=== PATIENT | male | born 1950 ===

== ENCOUNTER → 2022-07-08 08:26 | Outpatient (BNVA) | payer MEDICARE, SELFPAY | PROVIDERS: PCP Pediatrics; Visit Provider Nurse Practitioner Family | DX: M96.1 Postlaminectomy syndrome, not elsewhere classified (principal); M51.36 Other intervertebral disc degeneration, lumbar region; M70.61 Trochanteric bursitis, right hip; M70.62 Trochanteric bursitis, left hip; M25.552 Pain in left hip; M47.816 Spondylosis without myelopathy or radiculopathy, lumbar region | CPT/HCPCS: 99202 ==

== ENCOUNTER 2022-09-16 06:05 | Outpatient (REF) | payer MEDICARE, SELFPAY ==
--- NOTE | ~2022-09-16 | FL_ITS ---
EXAMINATION: XR FLUOROSCOPY WITH IMAGES CLINICAL INFORMATION: Pain left hip COMPARISON: None. TECHNIQUE: Fluoroscopy Supervised By: Arely Eduardo. Fluoroscopy Time: 0.2 minutes. Cumulative Dose: 20.8 mGy. DAP: 5.28 Gycm2. Images: 3. FINDINGS: There are 2 digital images revealing needle positioned lateral to left femoral head with contrast along the medial joint. The joint space is maintained normal. No bony abnormality seen. FL/FL guidance in treatment room IMPRESSION: Fluoroscopy was provided to referring physician for pain management.
== END 2022-09-16 06:06 | disposition home or self-care (01) ==
LOC: CF 06:05
PROVIDERS: Visit Provider Anesthesiology
DX: M25.552 Pain in left hip (principal)
CPT/HCPCS: 20610; J2795; J3301; Q9965; Q9967

== ENCOUNTER → 2022-10-24 08:17 | Outpatient (BNVA) | payer MEDICARE, SELFPAY | PROVIDERS: PCP Pediatrics; Visit Provider Nurse Practitioner Family | DX: M96.1 Postlaminectomy syndrome, not elsewhere classified (principal); M62.830 Muscle spasm of back; G56.01 Carpal tunnel syndrome, right upper limb; M25.552 Pain in left hip; M70.61 Trochanteric bursitis, right hip; M70.62 Trochanteric bursitis, left hip; M16.0 Bilateral primary osteoarthritis of hip | CPT/HCPCS: 99212 ==

== ENCOUNTER → 2022-11-28 14:36 | Outpatient (BNVA) | payer MEDICARE, SELFPAY | PROVIDERS: PCP Pediatrics; Visit Provider Nurse Practitioner Family | DX: M16.0 Bilateral primary osteoarthritis of hip (principal); M51.36 Other intervertebral disc degeneration, lumbar region; M62.830 Muscle spasm of back; M47.816 Spondylosis without myelopathy or radiculopathy, lumbar region; M25.552 Pain in left hip; M96.1 Postlaminectomy syndrome, not elsewhere classified; G56.01 Carpal tunnel syndrome, right upper limb | CPT/HCPCS: 99212 ==